=== PATIENT | female | born 1960 | race Caucasian/White ===

== ENCOUNTER 2018-11-06 17:29 | Emergency (ER) | payer BC ==
[2018-11-06] MEDS ORDERED: ONDANSETRON 4 MG/2 ML VIAL ONE (17:58)
[2018-11-06] MEDS ORDERED: MORPHINE 4 MG/ML SYR ONE ×2 (17:58→19:30)
[2018-11-06] MEDS ORDERED: NA CHLORIDE 0.9% 1,000 ML ONE (17:58)
[2018-11-06 18:21] LABS: Absolute Lymphocytes (CBC) 1.3 K/uL (0.7-4.9); Basophils % 0.4 % (0-1.3); Hematocrit 38.5 % (36.0-45.0); Lymphocytes % 19.4 % (15.3-44.8); MPV 8.3 fL (7.6-11.3); RBC Red Blood Cell Count 4.56 M/uL (3.86-4.86)
[2018-11-06 18:42] LABS: Potassium 4.2 mmol/L (3.5-5.1)
--- NOTE | 2018-11-06 18:56 | RAD REPORT ---
EXAM DESCRIPTION: CT - Head C Spine Cap Ana Paula Dee - 11/06/2018 6:34 pm CLINICAL HISTORY: Head, neck, chest and abdomen pain following trauma, patient thrown from a horse COMPARISON: None. TECHNIQUE: Axial [address] head images were obtained. Axial [address] cervical spine images were obtaine d with sagittal and coronal reconstruction images reviewed. During dynamic enhancement of 100mL non-i onic contrast, axial 5 mm images of the chest, abdomen and pelvis were obtained. All CT scans are performed using dose optimization technique as appropriate and may include automated exposure control or mA/KV adjustment according to patient size. FINDINGS: No intracranial hemorrhage, mass or edema. No midline shift or abnormal fluid collection. Mastoid air cells and paranasal sinuses are clear. No skull fracture. CT cervical spine imaging shows normal height. Normal alignment of the vertebrae. No disc space narro wing. No paraspinal mass or hematoma seen. Central canal detail is inherently limited. Concerns for t raumatic disc herniation or traumatic cord injury can be further addressed with MR imaging. CT chest shows no pneumothorax, pulmonary contusion or pleural fluid collection. No mediastinal hemat cecy and the aorta and pulmonary arteries are unremarkable. No chest will mass or abnormal axillary fi nding. No sternum fracture is present. No displaced rib fractures present and no nondisplaced rib fra ctures confirmed. Patient does have a midshaft right clavicle fracture. The lateral fracture fragment is displaced posteriorly and there is 2 cm of overlap of the fracture fragments. The entirety of the right clavicle is not seen. Right shoulder girdle is not adequately imaged for full assessment. Ther e is no dislocation of the right humeral head or gross evidence for a proximal right humerus fracture . CT abdomen and pelvis show no injury to solid abdominal viscera. No active gallbladder process seen. Gallstone is present. No biliary tree dilatation. No bowel injury or significant finding. No free air , free fluid or abnormal stranding. No urinary bladder abnormality. No significant bony finding. IMPRESSION: No hemorrhage, edema or acute CT Head finding. No significant CT Cervical Spine finding. No pulmonary contusion or pneumothorax. No displaced rib fracture present and no nondisplaced rib fra ctures identified. Midshaft right clavicle fracture with 2 centimeter of overlap of the fracture fragments. Right should er and clavicle are not fully assessed. No significant CT Abdomen and Pelvis finding.
--- NOTE | 2018-11-06 20:38 | RAD REPORT ---
EXAM DESCRIPTION: Shoulder Right 2 View - 11/06/2018 7:45 pm CLINICAL HISTORY: Shoulder pain, patient thrown from horse COMPARISON: None. TECHNIQUE: Internal and external rotation views of the right shoulder were obtained. FINDINGS: No fracture or dislocation of the proximal humerus. AC joint is normal. Sternoclavicular j oint is normal. Midshaft clavicle fracture is present. At least 2 cm of overlap of the fracture frag ments noted. No pathologic component. IMPRESSION: Right midshaft clavicle fracture with at least 2 cm of overlap of the fracture fragments .
--- NOTE | 2018-11-06 20:53 | ER ---
Nurse's Notes [facility] Name: Susi Eisenberg Age: 58 yrs Sex: Female : 1960 Arrival Date: 11/06/2018 Time: 17:31 Bed 8 Private MD: Milo De La Cruz B Diagnosis: Displaced fracture of shaft of right clavicle;Animal-rider injured by fall from or being thrown from horse in noncollision accident;Contusion of right back wall of thorax Presentation: 11/06 17:45 Presenting complaint: Patient states: Riding horse, horse bucked and pt fell on right jl7 side, c/o substernal , right shoulder and rib pain. Transition of care: patient was not received from another setting of care. Onset of symptoms was November 06, 2018. Risk Assessment: Do you want to hurt yourself or someone else? Patient reports no desire to harm self or others. Initial Sepsis Screen: Does the patient meet any 2 criteria? No. Patient's initial sepsis screen is negative. Does the patient have a suspected source of infection? No. Patient's initial sepsis screen is negative. Care prior to arrival: None. 17:45 Method Of Arrival: Ambulatory jl7 17:45 Acuity: DEJAH 3 jl7 Triage Assessment: 17:50 General: Appears in no apparent distress. uncomfortable, Behavior is calm, cooperative, jl7 appropriate for age. Pain: Complains of pain in right trapezius, right scapular area, mid-sternal area and anterior aspect of right lateral abdomen Pain currently is 8 out of 10 on a pain scale. Neuro: Level of Consciousness is awake, alert, obeys commands, Oriented to person, place, time, situation. Cardiovascular: Patient's skin is warm and dry. Respiratory: Airway is patent Respiratory effort is even, unlabored, Respiratory pattern is regular, symmetrical. Derm: Skin is pink, warm \\T\\ dry. Musculoskeletal: Range of motion: intact in all extremities, Swelling present in right clavicle Tenderness present in right trapezius, right scapular area, mid-sternal area and anterior aspect of right lateral abdomen. Historical: - Allergies: 17:50 PENICILLINS; jl7 - Home Meds: 17:50 anastrozole 1 mg oral tab 1 tab once daily [Active]; [place] Thyroid 120 mg Oral tab jl7 [Active]; Lexapro 10 mg Oral tab 1 tab once daily [Active]; - PMHx: 17:50 Hypothyroidism; Breast cancer; jl7 - Immunization history:: Adult Immunizations unknown. - Social history:: Smoking status: unknown. - Ebola Screening: : No symptoms or risks identified at this time. Screenin:13 Abuse screen: Denies threats or abuse. Denies injuries from another. Nutritional jl7 screening: No deficits noted. Tuberculosis screening: No symptoms or risk factors identified. Fall Risk No fall in past 12 months (0 pts). No secondary diagnosis (0 pts). IV access (20 points). Ambulatory Aid- None/Bed Rest/Nurse Assist (0 pts). Gait- Normal/Bed Rest/Wheelchair (0 pts) Mental Status- Oriented to own ability (0 pts). Total Bravo Fall Scale indicates No Risk (0-24 pts). Assessment: 18:13 General: See triage assessment. jl7 19:07 Reassessment: remains at bedside. VS WNL. General: Appears in no apparent ss distress. comfortable, Behavior is calm, cooperative. Pain: Complains of pain in right clavicle Pain currently is 4 out of 10 on a pain scale. Neuro: Level of Consciousness is awake, alert, obeys commands, Oriented to person, place, time, situation. Cardiovascular: Pulses are palpable in right radial artery, right posterior tibial artery, left radial artery and left posterior tibial artery. Respiratory: Airway is patent Respiratory effort is even, unlabored, Respiratory pattern is regular, symmetrical. GI: Patient currently denies diarrhea, nausea, vomiting. : No signs and/or symptoms were reported regarding the genitourinary system. EENT: Nares are clear Oral mucosa is moist. Throat is clear. Derm: Skin is intact, is healthy with good turgor, Skin is dry, Skin is pink, warm \\T\\ dry. normal. Musculoskeletal: Circulation, motion, and sensation intact. Range of motion: limited in right shoulder Swelling mild swelling noted to R clavicle area. 19:57 Reassessment: Patient appears in no apparent distress at this time. Patient and/or ss family updated on plan of care and expected duration. Pain level reassessed. Patient is alert, oriented x 3, equal unlabored respirations, skin warm/dry/pink. awaiting additional imaging results. 20:48 Reassessment: Patient appears in no apparent distress at this time. Patient and/or ss family updated on plan of care and expected duration. Pain level reassessed. Patient is alert, oriented x 3, equal unlabored respirations, skin warm/dry/pink. Awaiting discharge papers at this time. Patient states, "I'm ready to go home" Assisted patient with ambulation to restroom. Steady gait noted. Patient states feeling better. Vital Signs: 17:48 BP 139 / 86; Pulse 85; Resp 18; Temp 97.8; Pulse Ox 100% on R/A; kj1 19:07 BP 113 / 70; Pulse 85; Resp 16; Pulse Ox 98% on R/A; Pain 4/10; ss ED Course: 17:31 Patient arrived in ED. ag5 17:31 Milo De La Cruz MD is Private Physician. ag5 17:34 John De León NP is PHCP. pm1 17:34 Dave Marie MD is Attending Physician. pm1 17:45 Paulette Whyte RN is Primary Nurse. jl7 17:49 Triage completed. jl7 17:50 Arm band placed on right wrist. jl7 18:13 Patient has correct armband on for positive identification. Placed in gown. Bed in low jl7 position. Call light in reach. Side rails up X 1. Pulse ox on. NIBP on. 18:13 Initial lab(s) drawn, by pr, sent to lab. Inserted saline lock: 20 gauge in right jl7 antecubital area, using aseptic technique. Blood collected. 18:24 CT completed. Patient tolerated procedure well. Patient moved back from CT. mw3 18:33 CT completed. Patient tolerated procedure well. Patient moved back from CT. mw3 18:37 CT Traumagram (Head C Spine CAP W Con) In Process Unspecified. EDMS 19:49 Shoulder Right (2 View) XRAY In Process Unspecified. EDMS 20:51 Ej Najera MD is Referral Physician. pm1 20:58 No provider procedures requiring assistance completed. IV discontinued, intact, ss bleeding controlled, No redness/swelling at site. Pressure dressing applied. Administered Medications: 18:08 Drug: NS 0.9% 1000 ml Route: IV; Rate: 1000 ml; Site: right antecubital; jl7 18:08 Drug: Zofran 4 mg Route: IVP; Site: right antecubital; jl7 19:31 Follow up: Response: No adverse reaction ss 18:10 Drug: morphine 4 mg Route: IVP; Site: right antecubital; jl7 19:31 Follow up: Response: No adverse reaction; Marked relief of symptoms; Pain is decreased; ss RASS: Alert and Calm (0) 19:31 Drug: morphine 4 mg {Note: RASS 0.} Route: IVP; Site: right antecubital; ss 21:00 Follow up: Response: No adverse reaction; Pain is decreased; RASS: Alert and Calm (0) Outcome: 20:52 Discharge ordered by MD. pm1 20:58 Discharged to home ambulatory, with significant other. ss 20:58 Condition: good 20:58 Discharge instructions given to patient, family, Instructed on discharge instructions, follow up and referral plans. medication usage, Demonstrated understanding of instructions, follow-up care, medications, Prescriptions given X 1. 20:59 Patient left the ED. ss Signatures: Dispatcher [employer] EDComfort Teran RN RN John Ayala, WEATHERIZATION ADMINISTRATOR WEATHERIZATION ADMINISTRATOR pm1 Paulette Whyte RN RN jl7 Janice Crow 3 Gianna Chirinos 5 Lisa Dejesus kj1
--- NOTE | 2018-11-06 20:53 | EDPHYS ---
Physician Documentation [facility] Name: Susi Eisenberg Age: 58 yrs Sex: Female : 1960 Arrival Date: 11/06/2018 Time: 17:31 Bed 8 Private MD: Milo De La Cruz B ED Physician Dave Marie HPI: 11/06 18:10 This 58 yrs old Female presents to ER via Ambulatory with complaints of Fell pm1 Off A Horse. 18:10 Mechanism of injury: Fall: the patient fell Horse, and struck a grass-covered surface. pm1 Associated injuries: The patient sustained right shoulder and right rib cage. Onset: The symptoms/episode began/occurred just prior to arrival. The patient has not experienced similar symptoms in the past. The patient has not recently seen a physician. Patient was riding her horse. The horse was stopped and reared up and the patient fell on her right side. Patient presents with right shoulder pain and right sided rib pain. No head injury, headache, neck pain, or LOC. Patient was able to get up and walk. Historical: - Allergies: 17:50 PENICILLINS; jl7 - Home Meds: 17:50 anastrozole 1 mg oral tab 1 tab once daily [Active]; [place] Thyroid 120 mg Oral tab jl7 [Active]; Lexapro 10 mg Oral tab 1 tab once daily [Active]; - PMHx: 17:50 Hypothyroidism; Breast cancer; jl7 - Immunization history:: Adult Immunizations unknown. - Social history:: Smoking status: unknown. - Ebola Screening: : No symptoms or risks identified at this time. ROS: 18:10 Constitutional: Negative for fever, chills, and weight loss, Eyes: Negative for injury, pm1 pain, redness, and discharge, ENT: Negative for injury, pain, and discharge, Neck: Negative for injury, pain, and swelling, Cardiovascular: Negative for chest pain, palpitations, and edema, Respiratory: Negative for shortness of breath, cough, wheezing, and pleuritic chest pain, Abdomen/GI: Negative for abdominal pain, nausea, vomiting, diarrhea, and constipation, Back: Negative for injury and pain. 18:10 Skin: Negative for injury, rash, and discoloration, Neuro: Negative for headache, weakness, numbness, tingling, and seizure. 18:10 MS/extremity: Positive for pain, of the right shoulder. Exam: 18:10 Constitutional: This is a well developed, well nourished patient who is awake, alert, pm1 and in no acute distress. Head/Face: Normocephalic, atraumatic. Eyes: Pupils equal round and reactive to light, extra-ocular motions intact. Lids and lashes normal. Conjunctiva and sclera are non-icteric and not injected. Cornea within normal limits. Periorbital areas with no swelling, redness, or edema. ENT: Nares patent. No nasal discharge, no septal abnormalities noted. Tympanic membranes are normal and external auditory canals are clear. Oropharynx with no redness, swelling, or masses, exudates, or evidence of obstruction, uvula midline. Mucous membranes moist. Neck: Trachea midline, no thyromegaly or masses palpated, and no cervical lymphadenopathy. Supple, full range of motion without nuchal rigidity, or vertebral point tenderness. No Meningismus. 18:10 Cardiovascular: Regular rate and rhythm with a normal S1 and S2. No gallops, murmurs, or rubs. Normal PMI, no JVD. No pulse deficits. Respiratory: Lungs have equal breath sounds bilaterally, clear to auscultation and percussion. No rales, rhonchi or wheezes noted. No increased work of breathing, no retractions or nasal flaring. Abdomen/GI: Soft, non-tender, with normal bowel sounds. No distension or tympany. No guarding or rebound. No evidence of tenderness throughout. Back: No spinal tenderness. No costovertebral tenderness. Full range of motion. Skin: Warm, dry with normal turgor. Normal color with no rashes, no lesions, and no evidence of cellulitis. 18:10 Chest/axilla: Inspection: normal, Palpation: crepitus, is not appreciated, tenderness, that is mild, of the right lateral posterior chest, that totally reproduces the patient's complaints. 18:10 Musculoskeletal/extremity: Extremities: grossly normal except: noted in the right clavicle and right shoulder: Circulation is intact in all extremities. Sensation intact. 18:10 Neuro: Orientation: is normal, Motor: is normal, moves all fours. Vital Signs: 17:48 BP 139 / 86; Pulse 85; Resp 18; Temp 97.8; Pulse Ox 100% on R/A; kj1 19:07 BP 113 / 70; Pulse 85; Resp 16; Pulse Ox 98% on R/A; Pain 4/10; ss MDM: 17:34 Patient medically screened. marco antonio 20:51 Data reviewed: vital signs. Data interpreted: Pulse oximetry: on room air is 98 %. pm1 Interpretation: normal. Counseling: I had a detailed discussion with the patient and/or guardian regarding: the historical points, exam findings, and any diagnostic results supporting the discharge/admit diagnosis, lab results, radiology results, the need for outpatient follow up, for definitive care, a orthopedic surgeon, to return to the emergency department if symptoms worsen or persist or if there are any questions or concerns that arise at home. 11/06 17:48 Order name: Basic Metabolic Panel; Complete Time: 18:59 pm1 11/06 17:48 Order name: CBC with Diff; Complete Time: 18:59 pm1 11/06 17:48 Order name: CT Traumagram (Head C Spine CAP W Con); Complete Time: 18:59 pm1 11/06 17:48 Order name: Creatinine for Radiology; Complete Time: 18:59 pm1 11/06 17:48 Order name: Type And Screen; Complete Time: 19:26 pm1 11/06 19:02 Order name: Shoulder Right (2 View) XRAY; Complete Time: 20:42 pm1 11/06 17:48 Order name: Labs collected and sent; Complete Time: 18:12 pm1 11/06 17:49 Order name: Sling; Complete Time: 18:12 pm1 Administered Medications: 18:08 Drug: NS 0.9% 1000 ml Route: IV; Rate: 1000 ml; Site: right antecubital; jl7 18:08 Drug: Zofran 4 mg Route: IVP; Site: right antecubital; jl7 19:31 Follow up: Response: No adverse reaction ss 18:10 Drug: morphine 4 mg Route: IVP; Site: right antecubital; jl7 19:31 Follow up: Response: No adverse reaction; Marked relief of symptoms; Pain is decreased; ss RASS: Alert and Calm (0) 19:31 Drug: morphine 4 mg {Note: RASS 0.} Route: IVP; Site: right antecubital; ss 21:00 Follow up: Response: No adverse reaction; Pain is decreased; RASS: Alert and Calm (0) ss Disposition: 11/07 10:04 Co-signature as Attending Physician, Dave Marie MD I agree with the assessment and marco antonio plan of care. Disposition: 11/06/18 20:52 Discharged to Home. Impression: Displaced fracture of shaft of right clavicle, Animal-rider injured by fall from or being thrown from horse in noncollision accident, Contusion of right back wall of thorax. - Condition is Stable. - Discharge Instructions: Rib Contusion, Clavicle Fracture, How to Use a Sling. - Prescriptions for Tylenol- Codeine #3 300-30 mg Oral Tablet - take 2 tablet by ORAL route every 6 hours As needed; 30 tablet. - Medication Reconciliation Form, Thank You Letter, Antibiotic Education, Prescription Opioid Use form. - Follow up: Emergency Department; When: As needed; Reason: Worsening of condition. Follow up: Ej Najera MD; When: 2 - 3 days; Reason: Recheck today's complaints, Continuance of care, Re-evaluation by your physician. - Problem is new. - Symptoms have improved. Signatures: Dispatcher [employer] EDMS Dave Marie MD MD cha Smirch, Shelby, RN RN John Ayala, TREVOR FLEXBOARD OPERATOR pm1 Paulette Whyte RN RN jl7 Corrections: (The following items were deleted from the chart) 11/06 20:53 20:52 11/06/2018 20:52 Discharged to Home. Impression: Displaced fracture of shaft of pm1 right clavicle; Animal-rider injured by fall from or being thrown from horse in noncollision accident. Condition is Stable. Forms are Medication Reconciliation Form, Thank You Letter, Antibiotic Education, Prescription Opioid Use. Follow up: Emergency Department; When: As needed; Reason: Worsening of condition. Follow up: Ej Najera; When: 2 - 3 days; Reason: Recheck today's complaints, Continuance of care, Re-evaluation by your physician. Problem is new. Symptoms have improved. pm1 20:59 20:53 11/06/2018 20:52 Discharged to Home. Impression: Displaced fracture of shaft of ss right clavicle; Animal-rider injured by fall from or being thrown from horse in noncollision accident; Contusion of right back wall of thorax. Condition is Stable. Forms are Medication Reconciliation Form, Thank You Letter, Antibiotic Education, Prescription Opioid Use. Follow up: Emergency Department; When: As needed; Reason: Worsening of condition. Follow up: Ej Najera; When: 2 - 3 days; Reason: Recheck today's complaints, Continuance of care, Re-evaluation by your physician. Problem is new. Symptoms have improved. pm1
== END 2018-11-06 20:59 | disposition home or self-care (01) ==
LOC: ER 17:29
DX: S42.021A Displaced fracture of shaft of right clavicle, initial encounter for closed fracture (principal); S20.221A Contusion of right back wall of thorax, initial encounter; V80.010A Animal-rider injured by fall from or being thrown from horse in noncollision accident, initial encounter; Y93.52 Activity, horseback riding; Y92.89 Other specified places as the place of occurrence of the external cause; Z88.0 Allergy status to penicillin; Z85.3 Personal history of malignant neoplasm of breast; E03.9 Hypothyroidism, unspecified
CPT/HCPCS: 85025; 80048; 36415; 86900; 86850; 86901; 70450; 72125; 71260; 74177; 73030; 96375; 96374; 99284; Q9967; J7030; J2405

== ENCOUNTER → 2019-03-15 | Day surgery (SDC) | payer BC ==
[~2019-03-15] MED LIST: CIPROFLOXACIN 400mg IV 400 MG/200 ML BAG IV ONE; CODEINE 30MG/APAP 300MG TAB ONE; FENTANYL CITR 100 MCG/2 ML ONE; LIDOCAINE 2% MPF 5 ML VIAL ONE; MIDAZOLAM HCL 2 MG/2 ML INJ ONE; ONDANSETRON 4 MG/2 ML VIAL ONE; ROCURONIUM 50 MG/5 ML VIAL IV ONE; Ringers Lactate 1,000 ML IV ONE; propofoL 200 MG/20 ML VIAL IV ONE
--- OUTSIDE RECORDS SUMMARY | 2019-03-15 08:51 | XMS REPORT ---
:1960 Author Organization [employer] Care Team Providers Name Role Phone Ej Najera Provider Role Unavailable Allergies, Adverse Reactions, Alerts Substance Reaction Event Type PCN Info Not Available Drug Allergy Problems Problem Type Condition Code Onset Dates Condition Status Problem Closed displaced fracture of shaft S42.021A Active of right clavicle, initial encounter Problem Pharyngitis, unspecified etiology J02.9 Active Problem Pain of right clavicle M89.8X1 Active Assessment Displaced fracture of shaft of S42.021S Active right clavicle, sequela Assessment Pain of right clavicle M89.8X1 Active Medications Medication Code Code Instructions Start End Status Dosage System Date Date Escitalopram [facility] 30285962633 10 MG Oral Active not Oxalate defined Anastrozole [facility] 19114779537 1 MG Oral Active not defined Cymbalta [facility] [address]-69 Active not defined Medrol [facility] [id number] 4 MG Orally as October 03, Active as directed 2017 directed [place] Thyroid [facility] 51301984036 60 MG Oral Active not defined Results No Known Results Summary Purpose [employer] Submission
[2019-03-15 09:32] LABS: Absolute Lymphocytes (CBC) 1.5 K/uL (0.7-4.9); Basophils % 0.4 % (0-1.3); Hematocrit 42.8 % (36.0-45.0); MPV 8.3 fL (7.6-11.3)
[2019-03-15 09:49] LABS: Potassium 4.3 mmol/L (3.5-5.1)
--- NOTE | 2019-03-15 10:39 | P.BOP ---
Preoperative diagnosis: right foot puncture wound trauma with abscess, retained foreign body Postoperative diagnosis: same Primary procedure: Right foot wound exploration, drainage of complex abscess with Secondary procedure: subcutaneous debridement removal of organic foreign body. Estimated blood loss: <10cc Specimen: devitalized tissue, pus culture Findings: see dictaction Anesthesia: General Complications: None Transferred to: Recovery Room Condition: Good
--- NOTE | 2019-03-15 11:56 | EKG ---
Test Date: 2019-03-15 Test Time: 09:12:49 Rn Nicu: [place] MEASUREMENT RESULTS: Intervals: Rate: 66 CA: 160 QRSD: 82 QT: 428 QTc: 448 [place]: P: 52 CA: 160 QRS: 66 T: 70 INTERPRETIVE STATEMENTS: Normal sinus rhythm Normal ECG Compared to ECG 04/06/2014 17:56:48 No significant changes Electronically Signed On 03-15-19 11:56:02 TIER LIFT OPERATOR by Jt Smith
[2019-03-15 14:25] VITALS: BP 130/78; TEMP 97.9; O2SAT 97
--- NOTE | 2019-03-16 04:36 | OP ---
Surgeon: Greg Andrade MD Diagnosis: Right puncture wound traumatic with abscess retained foreign body. Procedures: Right foot wound exploration and drainage of complex abscess with subcutaneous debrideme nt and removal of organic foreign body. Disposition: Home. Activity: As tolerated. No heavy lifting. Followup: Follow up in my office in 1 week. Call for appointment [phone]. Patient will use Bactro ban over the area with dry gauze, may clean the area with soap and water and then keep it covered all time. We are going to give her surgical shoes for ambulation. Patient already on doxycycline by vinayak barraza primary doctor. JA/TANISHA Voice ID: [id number] Report ID: [id number]
--- NOTE | 2019-03-16 04:42 | OP ---
Date of Procedure: 03/15/2019 Surgeon: Greg Andrade MD Diagnosis: Right foot puncture traumatic wound with abscess and retained foreign body. Postoperative Diagnosis: Right foot puncture traumatic wound with abscess and retained foreign body. Procedure: Right foot wound exploration and drainage of thumb multiloculated complex abscess with wilson bcutaneous debridement of the devitalized tissue and removal of organic foreign body. Anesthesia: General plus local. Findings: Devitalized tissue abscess, pus with organic foreign body. Indications: This is the case of a 58-year-old patient, comes to us after passing through a [employer] b ed with a lot of thorn and one of them got stuck on her foot. Eventually, it got red and also start to put purulent discharge from the area, so the primary doctor evaluated her, started antibiotics, se nt to my office in the last few hours and we schedule her for wound exploration and drainage of absce ss and possible removal of foreign body. The benefits, alternatives, and risks fully explained to th e patient, which include but are not limited to infection, bleeding, damage to adjacent structures as complication, nonhealing wound, FL, and even . She also understands this may not relieve the s ymptoms. She might need more than one surgical intervention and she understands she will require wou nd care. She signed a consent. The area of concern was marked by me and the patient in the holding room. Description Of Procedure: Patient was brought the operating room, placed in supine position. Anesth esia was done without complication. The right foot was prepped and draped in a sterile fashion. The area of concern was previously marked by me and the patient in the holding room. We inject some loc al anesthetic and we saw the area where the pus was coming from, so we put a hemostat over that regio n. Thus, the area with a foreign body and organic material was present. We then opened the skin com ing from that area and since it is going deep on the skin. We noticed multiple loculations of absces s extending to the different parts of the plantar region and then we opened that. This led us into a cavity that she has some organic material consistent with a thorn with some dialyzed tissue that was all removed. The area was irrigated. Hemostasis obtained. Area was previously culture at the bannering of the case and then the area was packed with wet-to-dry dressing after local anesthetic. The patient tolerated the procedure well. Patient was sent to recovery in stable condition. JA/TANISHA Voice ID: [id number] Report ID: [id number]
== END | disposition home or self-care (01) ==
LOC: OR 08:43
PROVIDERS: ATTEND Surgery
PROC: 0J9Q0ZZ Drainage of Right Foot Subcutaneous Tissue and Fascia, Open Approach (ICD-10-PCS; principal; 2019-03-15 14:00)
DX: S91.341A Puncture wound with foreign body, right foot, initial encounter (principal); L02.611 Cutaneous abscess of right foot; E07.9 Disorder of thyroid, unspecified; F41.9 Anxiety disorder, unspecified; Z88.0 Allergy status to penicillin; Z83.3 Family history of diabetes mellitus; Z82.49 Family history of ischemic heart disease and other diseases of the circulatory system
CPT/HCPCS: 93005; 87070; 85025; 80048; 36415; 87205 ×2; 88304; 87075; 87077 ×2; 87186 ×2; 10061; J2704; J2250; J3010; J7120; J2405; J0744

== ENCOUNTER 2019-08-22 13:49 | Emergency (ER) | payer BC ==
--- OUTSIDE RECORDS SUMMARY | 2019-08-22 13:52 | XMS REPORT ---
:1960 Author Organization [facility] t Address [address] [place] [address] Care Team Providers Name Role Phone Unavailable Unavailable Unavailable Problems Condition Condition Condition Status Onset Resolution Last Treating Co mments Source Name Details Category Date Date Treatment Clinician Date Closed Closed Problem Active [facility] displaced displaced [facility] - fracture fracture [facility] of shaft of shaft l of right of right Outpat i clavicle, clavicle, ent initial initial Clinics encounter encounter Pharyngiti Pharyngiti Problem Active [facility], s, [facility] - unspecifie unspecifie Me moria d etiology d etiology l Outpati ent Clinics Pain of Pain of Diagnosis Active [facility] right right [facility] clavicle clavicle [facility] l [facility]pati ent Clinics Displaced Displaced Diagnosis Active [facility] fracture fracture [facility] - of shaft of shaft Memori a of right of right l clavicle, clavicle, Outp ati sequela sequela ent Clinics Allergies, Adverse Reactions, Alerts Allergy Allergy Status Severity Reaction(s) Onset Inactive Treating Comm ents Source Name Type Date Date Clinician PCN Adverse Active Info Not [facility] Reaction Available [facility] Medications Ordered Filled Start Stop Current Ordering Indication Dosage Frequency Signature Comments Components Source Medication Medication Date Date Medication? Clinician (SIG) Name Name Medrol Medrol 2017-0 Yes Ej as [facility]08 N[facility]era directed [facility] - 00[facility] l Out[facility] ent Clinics Del Mar Del Mar Yes Ej not [facility] Thyroid Thyroid Najera defined [facility] Anastrozole Anastrozole Yes Ej not [facility] Najera defined [facility] Cymbalta Cymbalta Yes Ej not [facility] Escitalopra Escitalopra Yes Ej not [facility] m Oxalate m Oxalate Najera defined [facility] Procedures This patient has no known procedures. Encounters Start End Encounter Admission Attending Care Care Encounter Source Date/Time Date/Time Type Type Clinicians Facility Department ID 2019-01-09 2019-01-09 Outpatient Rene Aragon [id number] [facility] 15:30[facility]00 15[facility]30[facility] 2018-12-09 2018-12-09 Outpatient Rene Aragon [id number] [facility] [address] 08:30:00 08:30:00 [facility] 2018-11-10 2018-11-10 Outpatient Rene Aragon [id number] [facility] [address] 15:00:00 15:00:00 t [facility] Results This patient has no known results.
--- NOTE | 2019-08-22 14:30 | RAD REPORT ---
EXAM DESCRIPTION: CT - Head Brain Wo Cont - 08/22/2019 2:14 pm CLINICAL HISTORY: DIZZINESS Headache, drowsiness COMPARISON: No comparisons TECHNIQUE: All CT scans are performed using dose optimization technique as appropriate and may inclu de automated exposure control or mA/KV adjustment according to patient size. FINDINGS: No intracranial hemorrhage, hydrocephalus or extra-axial fluid collection.No areas of brai n edema or evidence of midline shift. The paranasal sinuses and mastoids are clear. The calvarium is intact. IMPRESSION: No acute intracranial abnormality.
[2019-08-22 14:56] LABS: Absolute Lymphocytes (CBC) 1.2 K/uL (0.7-4.9); Basophils % 0.5 % (0-1.3); Hematocrit 41.5 % (36.0-45.0); Lymphocytes % 23.6 % (15.3-44.8); MPV 8.2 fL (7.6-11.3); RBC Red Blood Cell Count 4.83 M/uL (3.86-4.86)
[2019-08-22 15:01] LABS: Protime INR 0.95
[2019-08-22] MEDS ORDERED: DIAZEPAM 10 MG/2 ML INJ SYRINGE ONE (15:01)
[2019-08-22] MEDS ORDERED: ONDANSETRON 4 MG/2 ML VIAL ONE (15:02)
[2019-08-22] MEDS ORDERED: DIAZEPAM 2 MG TABLET ONE (15:02)
[2019-08-22] MEDS ORDERED: MECLIZINE HCL 12.5 MG TAB ONE (15:02)
[2019-08-22] MEDS ORDERED: NA CHLORIDE 0.9% 1,000 ML ONE (15:02)
[2019-08-22 15:15] LABS: BUN Blood Urea Nitrogen 23 mg/dL (7-18); Bicarbonate 26 mmol/L (21-32); Glucose Level 135 mg/dL (74-106); Potassium 3.8 mmol/L (3.5-5.1); Sodium Level 136 mmol/L (136-145); Troponin (Emerg Dept Use Only) < 0.02 ng/mL (0.0-0.045)
--- NOTE | 2019-08-22 15:40 | RAD REPORT ---
EXAM DESCRIPTION: MRI - Brain Wo Cont - 08/22/2019 3:30 pm CLINICAL HISTORY: DIZZINESS COMPARISON: Head Brain Wo Cont dated 08/22/2019 TECHNIQUE: Multi-sequence, multiplanar MR imaging of the brain was performed without contrast. FINDINGS: No intracranial hemorrhage, hydrocephalus or extra-axial fluid collections.Multiple areas of T2 and FLAIR hyperintensity in the periventricular and deep white matter most compatible with mail order sorter anthony microvascular ischemic changes. No edema or shift of midline structures. No findings to suspect b rain mass. DWI is negative for acute CVA. Midline structures are normally formed. Mastoid air cells and paranasal sinuses are clear. IMPRESSION: Negative for acute CVA or other acute intracranial abnormality.
[2019-08-22 17:31] VITALS: O2SAT 99
[2019-08-22 17:35] VITALS: BP 124/77; TEMP 97.9
--- NOTE | 2019-08-23 12:52 | EKG ---
Test Date: 2019-08-22 Test Time: 16:04:43 [facility]: EVELYN MEASUREMENT RESULTS: Intervals: Rate: 61 MS: 156 QRSD: 86 QT: 482 QTc: 485 [place]: P: 71 MS: 156 QRS: 78 T: 80 INTERPRETIVE STATEMENTS: Normal sinus rhythm Prolonged QT Abnormal ECG Compared to ECG 08/22/2019 14:34:16 No significant changes Electronically Signed On 08-23-19 12:50:32 CDT by Orlin Rivas
--- NOTE | 2019-08-23 12:53 | EKG ---
Test Date: 2019-08-22 Test Time: 14:34:16 Mica Spreader: EVELYN MEASUREMENT RESULTS: Intervals: Rate: 60 MT: 168 QRSD: 94 QT: 486 QTc: 486 [place]: P: 67 MT: 168 QRS: 78 T: 78 INTERPRETIVE STATEMENTS: Normal sinus rhythm Prolonged QT Abnormal ECG Compared to ECG 03/15/2019 09:12:49 Prolonged QT interval now present Electronically Signed On 08-23-19 12:50:37 CDT by Orlin Rivas
--- NOTE | 2019-08-28 13:27 | ER ---
Nurse's Notes [facility] Name: Susi Eisenberg Age: 59 yrs Sex: Female : 1960 Arrival Date: 08/22/2019 Time: 13:59 Bed 4 Private MD: Diagnosis: Vertigo Presentation: 08/21 14:05 Chief complaint: EMS states: Was at a restaurant eating lunch and suddenly became ph dizzy, diaphoretic and nauseous, 2 episodes of vomiting PRIVATE DUTY RN, reports recently feeling dizzy but not this bad, denies chest pain or SOB. Coronavirus screen: Patient denies a cough. Patient denies shortness of breath or difficulty breathing. Patient denies measured and/or subjective temperature greater than 100.4F prior to today's visit. Patient denies travel on a cruise ship or to a country the [facility] currently lists as an affected area. Patient denies contact with known and/or suspected case of COVID-19. Ebola Screen: No symptoms or risks identified at this time. Initial Sepsis Screen: Does the patient meet any 2 criteria? No. Patient's initial sepsis screen is negative. Does the patient have a suspected source of infection? No. Patient's initial sepsis screen is negative. Risk Assessment: Do you want to hurt yourself or someone else? Patient reports no desire to harm self or others. Onset of symptoms was August 22, 2019. 14:05 Method Of Arrival: EMS: [facility] ph 14:05 Acuity: DEJAH 2 ph Historical: - Allergies: 14:09 PENICILLINS; ph - Home Meds: 14:09 Lexapro 10 mg Oral tab 1 tab once daily [Active]; [place] Thyroid 120 mg Oral tab ph [Active]; Meclizine Oral [Active]; - PMHx: 14:09 breast cancer; Hypothyroidism; Depression; ph - Immunization history:: Adult Immunizations unknown. - Social history:: Smoking status: Patient denies any tobacco usage or history of. - Family history:: not pertinent. - Hospitalizations: : No recent hospitalization is reported. Screenin:08 Abuse screen: Denies threats or abuse. Denies injuries from another. Nutritional ph screening: No deficits noted. Tuberculosis screening: No symptoms or risk factors identified. Fall Risk No fall in past 12 months (0 pts). No secondary diagnosis (0 pts). IV access (20 points). Ambulatory Aid- None/Bed Rest/Nurse Assist (0 pts). Gait- Weak (10 pts.). Mental Status- Oriented to own ability (0 pts). Total Bravo Fall Scale indicates Low Risk Score (25-44 pts). Fall prevention measures have been instituted. Side Rails Up X 2 Placed close to Nursing Station Frequent Obs/Assesments occuring As available Patient and Family Educated on Fall Prevention Program and strategies. Assessment: 14:09 General: Appears in no apparent distress. uncomfortable, well groomed, Behavior is ph calm, cooperative, appropriate for age, Denies fever, feeling ill. Pain: Complains of pain in base of the skull Pain currently is 2 out of 10 on a pain scale. Neuro: Level of Consciousness is awake, alert, obeys commands, Oriented to person, place, time, situation, Brass Finisher are equal bilaterally Moves all extremities. Full function Speech is normal, Facial symmetry appears normal, Facial symmetry: tongue is midline, Pupils are PERRLA, Reports blurred vision dizziness, weakness. Cardiovascular: Reports diaphoresis, lightheadedness, nausea, vomiting, Denies chest pain, palpitations, shortness of breath, syncope, Capillary refill < 3 seconds in bilateral fingers Rhythm is sinus rhythm. Respiratory: Airway is patent Respiratory effort is even, unlabored. GI: Reports nausea, vomiting, Patient currently denies abdominal pain. Derm: Skin is intact, Skin is diaphoretic, Skin is normal, Skin temperature is cool. Musculoskeletal: Circulation, motion, and sensation intact. Range of motion: intact in all extremities. 15:05 Reassessment: Patient appears in no apparent distress at this time. Patient and/or ph family updated on plan of care and expected duration. Pain level reassessed. Patient is alert, oriented x 3, equal unlabored respirations, skin warm/dry/pink. Pt less diaphoretic, reports that nausea has resolved and states that dizziness is still present but has improved, taken to MRI via stretcher. 15:52 Reassessment: Patient appears in no apparent distress at this time. Patient and/or ph family updated on plan of care and expected duration. Pain level reassessed. Patient is alert, oriented x 3, equal unlabored respirations, skin warm/dry/pink. Pt ambulatory to restroom, states, " I am still a little dizzy but I feel a lot better than I did." Denies nausea at this time. 16:43 Reassessment: Patient appears in no apparent distress at this time. Patient and/or ph family updated on plan of care and expected duration. Pain level reassessed. Patient is alert, oriented x 3, equal unlabored respirations, skin warm/dry/pink. Pt resting comfortably, awaiting completion of IV fluids before d/c. Vital Signs: 14:05 BP 128 / 79; Pulse 71; Resp 18; Pulse Ox 98% on R/A; Weight 113.4 kg; Height 5 ft. 5 ph in. (165.10 cm); 15:04 BP 132 / 78; Pulse 74; Resp 18; Temp 97.4; Pulse Ox 99% on R/A; ph 15:53 BP 130 / 61; Pulse 72; Resp 16; Pulse Ox 99% on R/A; ph 16:43 BP 124 / 77; Pulse 68; Resp 18; Temp 97.9; Pulse Ox 99% on R/A; ph 14:05 Body Mass Index 41.60 (113.40 kg, 165.10 cm) ph ED Course: 13:59 Patient arrived in ED. rn 13:59 Pelon Davenport MD is Attending Physician. rn 14:05 Betzaida Andino, LANEY is Primary Nurse. ph 14:07 Triage completed. ph 14:08 Patient has correct armband on for positive identification. Placed in gown. Bed in low ph position. Call light in reach. Side rails up X2. surveillance system monitor on. Pulse ox on. NIBP on. Door closed. Noise minimized. Warm blanket given. 14:08 Arm band placed on Patient placed in an exam room, on a stretcher, on hall monitor. ph 14:11 CT Head Brain wo Cont In Process Unspecified. EDMS 14:35 Inserted saline lock: 20 gauge in right antecubital area, using aseptic technique. ph 15:16 MRI - Brain Wo Cont In Process Unspecified. EDMS 16:18 Bud Browne MD is Referral Physician. rn 16:44 No provider procedures requiring assistance completed. IV discontinued, intact, ph bleeding controlled, No redness/swelling at site. Pressure dressing applied. Administered Medications: 15:02 Drug: NS 0.9% 1000 ml Route: IV; Rate: 1000 ml; Site: right antecubital; ph 17:10 Follow up: Response: No adverse reaction; IV Status: Completed infusion; IV Intake: jl7 1000ml 15:02 Drug: Meclizine 50 mg Route: PO; ph 15:47 Follow up: Response: No adverse reaction ph 15:03 Drug: Valium 2 mg Route: PO; ph 15:48 Follow up: Response: No adverse reaction ph 15:03 Drug: Zofran (Ondansetron) 4 mg Route: IVP; Site: right antecubital; ph 15:48 Follow up: Response: No adverse reaction ph Intake: 17:10 IV: 1000ml; Total: 1000ml. jl7 Outcome: 16:19 Discharge ordered by . rn 16:44 Discharged to home ambulatory. ph 16:44 Condition: improved 16:44 Discharge instructions given to patient, Instructed on discharge instructions, follow up and referral plans. medication usage, Demonstrated understanding of instructions, follow-up care, medications, Prescriptions given X 1. 17:21 Patient left the ED. jl7 Signatures: Dispatcher [employer] EDMS Pelon Davenport MD MD rn Hall, Patricia, RN RN Paulette Whyte RN RN jlEdgar
--- NOTE | 2019-08-28 13:28 | EDPHYS ---
Physician Documentation [facility] Name: Susi Eisenberg Age: 59 yrs Sex: Female : 1960 Arrival Date: 08/22/2019 Time: 13:59 Bed 4 Private MD: ED Physician Pelon Davenport HPI: 08/21 15:28 This 59 yrs old Female presents to ER via EMS with complaints of dizziness. rn 15:28 The patient presents with dizziness, sense of spinning. Onset: The symptoms/episode rn began/occurred just prior to arrival. Context: occurred at a restaurant. Modifying factors: The symptoms are alleviated by closing eyes, the symptoms are aggravated by movement of head. Associated signs and symptoms: Pertinent positives: diaphoresis, vomiting, Pertinent negatives: abdominal pain, blurred vision, chest pain, focal weakness, head injury, headache, seizure, shortness of breath, syncope. Severity of symptoms: At their worst the symptoms were moderate in the emergency department the symptoms are unchanged. The patient has experienced similar episodes in the past. reports hx of vertigo and dizziness in past and recently, her PCP had given her meclizine in may, reports at restaurant, sudden onset of dizziness, nausea/vomiting x 2, worse with opening eyes and moving head, her vertigo has never been this bad. No headache or focal neuro complaint. Feels like rest of body working ok. . Historical: - Allergies: 14:09 PENICILLINS; ph - Home Meds: 14:09 Lexapro 10 mg Oral tab 1 tab once daily [Active]; [place] Thyroid 120 mg Oral tab ph [Active]; Meclizine Oral [Active]; - PMHx: 14:09 breast cancer; Hypothyroidism; Depression; ph - Immunization history:: Adult Immunizations unknown. - Social history:: Smoking status: Patient denies any tobacco usage or history of. - Family history:: not pertinent. - Hospitalizations: : No recent hospitalization is reported. ROS: 15:28 Constitutional: Negative for fever, chills, and weight loss, Eyes: Negative for injury, rn pain, redness, and discharge, Neck: Negative for injury, pain, and swelling, Cardiovascular: Negative for chest pain, palpitations, and edema, Respiratory: Negative for shortness of breath, cough, wheezing, and pleuritic chest pain, Abdomen/GI: Negative for abdominal pain, diarrhea, and constipation, Back: Negative for injury and pain, MS/Extremity: Negative for injury and deformity, Skin: Negative for injury, rash, and discoloration, Neuro: Negative for headache, weakness, numbness, tingling, and seizure. Exam: 15:28 Constitutional: This is a well developed, well nourished patient who is awake, alert, rn sitting upright, eyes clsed, holding emesis bag. Head/Face: Normocephalic, atraumatic. Eyes: Pupils equal round and reactive to light, extra-ocular motions intact. ENT: MMM Cardiovascular: Regular rate and rhythm. No pulse deficits. Respiratory: No increased work of breathing, no retractions or nasal flaring. Abdomen/GI: soft, non-tender MS/ Extremity: Pulses equal, no cyanosis. Neurovascular intact. Full, normal range of motion. Equal circumference. Neuro: Awake and alert, GCS 15, oriented to person, place, time, and situation. Cranial nerves II-XII grossly intact. Motor strength 5/5 in all extremities. Sensory grossly intact. Cerebellar exam normal. Vital Signs: 14:05 BP 128 / 79; Pulse 71; Resp 18; Pulse Ox 98% on R/A; Weight 113.4 kg; Height 5 ft. 5 ph in. (165.10 cm); 15:04 BP 132 / 78; Pulse 74; Resp 18; Temp 97.4; Pulse Ox 99% on R/A; ph 15:53 BP 130 / 61; Pulse 72; Resp 16; Pulse Ox 99% on R/A; ph 16:43 BP 124 / 77; Pulse 68; Resp 18; Temp 97.9; Pulse Ox 99% on R/A; ph 14:05 Body Mass Index 41.60 (113.40 kg, 165.10 cm) ph MDM: 13:59 Patient medically screened. rn 16:17 Differential diagnosis: cardiac arrhythmia, CVA, generalized weakness, hypovolemia, rn idiopathic dizziness, near-syncope, TIA, vertigo. Data reviewed: vital signs, nurses notes, lab test result(s), EKG, radiologic studies, CT scan, MRI, and as a result, I will discharge patient. Counseling: I had a detailed discussion with the patient and/or guardian regarding: the historical points, exam findings, and any diagnostic results supporting the discharge/admit diagnosis, lab results, radiology results, the need for outpatient follow up, to return to the emergency department if symptoms worsen or persist or if there are any questions or concerns that arise at home. Response to treatment: the patient's symptoms have markedly improved after treatment, Ambulatory without assistance to bathroom, looks and feels much better, smiling, ready to go home. , and as a result, I will discharge patient. Special discussion: I discussed with the patient/guardian in detail that at this point there is no indication for admission to the hospital. It is understood, however, that if the symptoms persist or worsen the patient needs to return immediately for re-evaluation. Based on the history and exam findings, there is no indication for further emergent testing or inpatient evaluation. I discussed with the patient/guardian the need to see the neurologist for further evaluation of the symptoms. 16:20 ED course: Pt with prolonged QT, but no signs of arrhythmia, advised her to notify rn future prescribers to avoid QT prolonging medication/abx. . 08/21 14:00 Order name: Basic Metabolic Panel; Complete Time: 15:16 08/21 14:00 Order name: CBC with Diff; Complete Time: 15:08/21 14:00 Order name: Magnesium; Complete Time: 15:08/21 14:00 Order name: Protime (+inr); Complete Time: 15:16 08/21 14:00 Order name: Ptt, Activated; Complete Time: 15:16 08/21 14:00 Order name: Troponin (emerg Dept Use Only); Complete Time: 15:16 08/21 14:00 Order name: CT Head Brain wo Cont; Complete Time: 14:36 08/21 14:00 Order name: EKG; Complete Time: 14:01 08/21 14:00 Order name: Cardiac monitoring; Complete Time: 14:13 08/21 14:37 Order name: MRI - Brain Wo Cont; Complete Time: 15:49 08/21 14:00 Order name: EKG - Nurse/Tech; Complete Time: 15:08/21 14:00 Order name: IV Saline Lock; Complete Time: 15:08/21 14:00 Order name: Labs collected and sent; Complete Time: 15:08/21 14:00 Order name: NPO; Complete Time: 14:13 rn 08/21 14:00 Order name: O2 Per Protocol; Complete Time: 14: rn 08/21 14:00 Order name: O2 Sat Monitoring; Complete Time: 14: rn Administered Medications: 15:02 Drug: NS 0.9% 1000 ml Route: IV; Rate: 1000 ml; Site: right antecubital; ph 17:10 Follow up: Response: No adverse reaction; IV Status: Completed infusion; IV Intake: jl7 1000ml 15:02 Drug: Meclizine 50 mg Route: PO; ph 15:47 Follow up: Response: No adverse reaction ph 15:03 Drug: Valium 2 mg Route: PO; ph 15:48 Follow up: Response: No adverse reaction ph 15:03 Drug: Zofran (Ondansetron) 4 mg Route: IVP; Site: right antecubital; ph 15:48 Follow up: Response: No adverse reaction ph Disposition: 08/22/19 16:19 Discharged to Home. Impression: Vertigo. - Condition is Stable. - Discharge Instructions: Vertigo. - Prescriptions for Meclizine 25 mg Oral Tablet - take 1 tablet by ORAL route every 8 hours As needed; 30 tablet. - Medication Reconciliation Form, Thank You Letter, Antibiotic Education, Prescription Opioid Use form. - Follow up: Bud Browne MD; When: As needed; Reason: Recheck today's complaints, Re-evaluation by your physician. - Problem is new. - Symptoms have improved. Signatures: Dispatcher [employer] EDMS Pelon Davenport MD MD rn Hall, Patricia, RN RN ph Leal, Jahala, RN RN jl7 Corrections: (The following items were deleted from the chart) 15:32 15:28 Constitutional: Negative for fever, chills, and weight loss, Eyes: Negative for rn injury, pain, redness, and discharge, Neck: Negative for injury, pain, and swelling, Cardiovascular: Negative for chest pain, palpitations, and edema, Respiratory: Negative for shortness of breath, cough, wheezing, and pleuritic chest pain, Abdomen/GI: Negative for abdominal pain, diarrhea, and constipation, MS/Extremity: Negative for injury and deformity, Skin: Negative for injury, rash, and discoloration, Neuro: Negative for headache, weakness, numbness, tingling, and seizure, rn 17:21 16:19 08/22/2019 16:19 Discharged to Home. Impression: Vertigo. Condition is Stable. jl7 Forms are Medication Reconciliation Form, Thank You Letter, Antibiotic Education, Prescription Opioid Use. Follow up: Bud Browne; When: As needed; Reason: Recheck today's complaints, Re-evaluation by your physician. Problem is new. Symptoms have improved. rn
== END 2019-08-22 17:21 | disposition home or self-care (01) ==
LOC: ER 13:49
DX: R42 Dizziness and giddiness (principal); E03.9 Hypothyroidism, unspecified; F32.9 Major depressive disorder, single episode, unspecified; Z85.3 Personal history of malignant neoplasm of breast; Z88.0 Allergy status to penicillin
CPT/HCPCS: 96361; 93005 ×2; 85025; 80048; 36415; 83735; 85610; 85730; 84484; 70450; 70551; 96374; 99284; J7030; J2405; J3360; J8597